=== PATIENT | male | born 1995 | race Caucasian/White ===

== ENCOUNTER 2018-06-17 10:30 | Outpatient (CLI) | payer OTHER ==
[2018-06-18 02:21] LABS: DIRECT BILIRUBIN <0.2 mg/dL (<0.4); TOTAL PROTEIN 7.1 g/dL (6.0-8.5)
== END 2018-06-17 10:38 ==
LOC: LAB 10:30
PROVIDERS: ATTEND Physician Assistant
DX: B35.1 Tinea unguium (principal); Z79.899 Other long term (current) drug therapy
CPT/HCPCS: 36415; 80076